=== PATIENT | female | born 1945 | race Caucasian/White ===

== ENCOUNTER 2018-11-28 11:17 | Emergency (ER) | payer MEDICARE, MEDICAID ==
[~2018-11-28] VITALS: Ht 160 cm; Wt 70.0 kg
[~2018-11-28 11:17] MED LIST: ESCI20TA PO; FLO1 PO; HYDR-4011 PO; TRAM50TA2 PO
[2018-11-28 11:21] VITALS: Ht 160 cm; Wt 70.0 kg
[2018-11-28] MEDS ORDERED: ONDANSETRON 4 MG INJ IV STA ×2 (11:30→12:54)
[2018-11-28] MEDS ORDERED: morphine 4 MG/ML VIAL IV STA (11:30)
[2018-11-28] MEDS ORDERED: LACTATED RINGER'S 1,000 ML IV STA (11:30)
[2018-11-28] MEDS ORDERED: KETOROLAC 15 MG INJ IV STA (11:57)
[2018-11-28] MEDS ORDERED: HYDROmorphONE 0.5 MG/0.5 ML SYG IV STA (11:57)
[2018-11-28] MEDS ORDERED: HYDROmorphONE 1 MG/ML SYG IV STA (12:54)
[2018-11-28] MEDS ORDERED: PROPOFOL 200 MG INJ IV ONE (13:30)
[2018-11-28 15:56] VITALS: BP 115/78; PULSE 102; RESP 16
== END 2018-11-28 15:57 | disposition home or self-care (01) ==
LOC: E/R 11:17
DX: S52.502A Unspecified fracture of the lower end of left radius, initial encounter for closed fracture (principal); R06.00 Dyspnea, unspecified; W01.0XXA Fall on same level from slipping, tripping and stumbling without subsequent striking against object, initial encounter; Y92.89 Other specified places as the place of occurrence of the external cause
CPT/HCPCS: 25605; 36415; 71045; 73110; 80053; 83690; 85025; 85610; 85730; 94770; 96374; 96375; 96376; 99285; J1170; J1885; J2270; J2405; J7120